=== PATIENT | female | born 1990 | race American Indian/Alaskan Native ===

== ENCOUNTER 2020-12-01 12:12 | Emergency (ER) | payer SELFPAY ==
[2020-12-01 12:30] VITALS: BP 120/81
--- NOTE | 2020-12-01 12:32 | Emergency Department Report ---
ED General Adult HPI - General Stated complaint: TOOTHACHE/HEAD PAIN Time Seen by Provider: 12/01/20 12:27 - History of Present Illness Initial comments: 30 yo AA F pt present with complaints of right sided dental pain and right ear pain x 4 days. She denies any fever/chills/sweats, difficulty opening her jaw, dysphagia, hearing changes, or ear drainage. Rates her pain as a 7/10 in severity. Pt reports aleve and tylenol are not helping with pain. Hx of Asthma per pt. Has dental appointment in December. -: Gradual - Related Data Home Medications Medication Instructions Recorded Confirmed Last Taken ALBUTEROL Inhaler 05/20/16 05/20/16 Previous Rx's Medication Instructions Recorded Last Taken Type Acetaminophen/Codeine [Tylenol 1 tab PO Q8H PRN #6 tab 12/01/20 Unknown Rx /Codeine # 3 tab] Amoxicillin [Trimox CAP] 500 mg PO Q8H 7 Days #21 capsule 12/01/20 Unknown Rx Ibuprofen [Motrin 800 MG tab] 800 mg PO Q8HR PRN #21 tablet 12/01/20 Unknown Rx Levocetirizine Dihydrochloride 5 mg PO QHS PRN #20 tablet 12/01/20 Unknown Rx [Xyzal] Allergies Allergy/AdvReac Type Severity Reaction Status Date / Time No Known Allergies Allergy Unverified 05/20/16 11:00 ED Review of Systems ROS: Stated complaint: TOOTHACHE/HEAD PAIN Other details as noted in HPI Constitutional: denies: chills, diaphoresis, fever, malaise, weakness Eyes: denies: eye pain, vision change ENT: ear pain Respiratory: denies: cough, shortness of breath Cardiovascular: denies: chest pain Gastrointestinal: denies: nausea, vomiting Skin: denies: rash Neurological: denies: headache ED Past Medical Hx - Past Medical History Hx Asthma: Yes - Surgical History Additional Surgical History: Right foot surgery - Social History Smoking Status: Never Smoker Substance Use Type: Alcohol, Prescribed, Other - Medications Home Medications: Home Medications Medication Instructions Recorded Confirmed Last Taken Type ALBUTEROL Inhaler 05/20/16 05/20/16 History Acetaminophen/Codeine [Tylenol 1 tab PO Q8H PRN #6 tab 12/01/20 Unknown Rx /Codeine # 3 tab] Amoxicillin [Trimox CAP] 500 mg PO Q8H 7 Days #21 capsule 12/01/20 Unknown Rx Ibuprofen [Motrin 800 MG tab] 800 mg PO Q8HR PRN #21 tablet 12/01/20 Unknown Rx Levocetirizine Dihydrochloride 5 mg PO QHS PRN #20 tablet 12/01/20 Unknown Rx [Xyzal] ED Physical Exam - General General appearance: alert, in no apparent distress, obese - Head Head exam: Present: atraumatic, normocephalic - Expanded ENT Exam Expanded TM/Canal exam: Bulging: Right TM (no erythema, no drainage ) Mouth exam: Absent: drooling, trismus, muffled voice Teeth exam: Absent: dental caries 1 - Dental Tenderness (mild erythema noted; no abscess noted) Throat exam: Positive: normal inspection. Negative: tonsillar erythema, tonsillomegaly - Neck Neck exam: Present: normal inspection, full ROM. Absent: tenderness - Respiratory Respiratory exam: Present: normal lung sounds bilaterally. Absent: respiratory distress - Cardiovascular Cardiovascular Exam: Present: regular rate - Neurological Exam Neurological exam: Present: alert, oriented X3, normal gait - Psychiatric Psychiatric exam: Present: normal affect, normal mood - Skin Skin exam: Present: warm, dry, intact, normal color. Absent: rash, cyanosis ED Medical Decision Making - Medical Decision Making 30 yo AA F pt present with complaints of right sided dental pain and right ear pain x 4 days. She denies any fever/chills/sweats, difficulty opening her jaw, dysphagia, hearing changes, or ear drainage. Rates her pain as a 7/10 in severity. Pt reports aleve and tylenol are not helping with pain. Hx of Asthma per pt. Has dental appointment in December. Bulging right TM without erythema-likely due to fluid accumulation. Will treat toothache with Amoxil,. Recommend follow u with dental specialist within 2 days. Strict return precautions were discussed in detail with pt who verbalizes understanding. Critical care attestation.: If time is entered above; I have spent that time in minutes in the direct care of this critically ill patient, excluding procedure time. ED Disposition Clinical Impression: Earache, right, Pain, dental Disposition: [id number] TO HOME OR SELFCARE Is pt being admited?: No Condition: Stable Instructions: Earache, Adult, Impacted Molar, Dental Abscess, [id number] Prescriptions: Levocetirizine Dihydrochloride [Xyzal] 5 mg PO QHS PRN #20 tablet PRN Reason: allergies Ibuprofen [Motrin 800 MG tab] 800 mg PO Q8HR PRN #21 tablet PRN Reason: Pain, Moderate (4-6) Amoxicillin [Trimox CAP] 500 mg PO Q8H 7 Days #21 capsule Acetaminophen/Codeine [Tylenol /Codeine # 3 tab] 1 tab PO Q8H PRN #6 tab PRN Reason: Pain , Severe (7-10) Referrals: [facility] [Provider Group] - 3-5 Days
== END 2020-12-01 13:55 | disposition home or self-care (01) ==
LOC: ED 12:12
DX: K08.89 Other specified disorders of teeth and supporting structures (principal); H92.01 Otalgia, right ear; J45.909 Unspecified asthma, uncomplicated; Z79.899 Other long term (current) drug therapy; Z98.890 Other specified postprocedural states
CPT/HCPCS: 99282

== ENCOUNTER → 2021-09-08 | Emergency (ER) | payer SELFPAY | END | disposition left against medical advice (07) | LOC: ED 23:55 | DX: R51.9 Headache, unspecified (principal); Z53.21 Procedure and treatment not carried out due to patient leaving prior to being seen by health care provider ==